=== PATIENT | female | born 1980 | race Caucasian/White ===

== ENCOUNTER 2017-05-21 08:46 | Emergency (ER) | payer OTHER ==
[2017-05-21 10:29] VITALS: BP 108/62
== END 2017-05-21 10:29 | disposition home or self-care (01) ==
LOC: ED 08:46
DX: J11.1 Influenza due to unidentified influenza virus with other respiratory manifestations (principal)
CPT/HCPCS: J1885; J7030

== ENCOUNTER 2018-08-12 04:53 | Emergency (ER) | payer OTHER ==
[~2018-08-12] VITALS: Ht 152.4 cm; Wt 76.7 kg
[2018-08-12 04:54] VITALS: Ht 152.4 cm; Wt 76.7 kg
[2018-08-12 05:59] LABS: PLATELET COUNT 245 x10^3mcL (130-400); RED CELL DISTRIBUTION WIDTH 13.2 % (11.5-14.5)
[2018-08-12 06:07] LABS: CALCIUM 8.7 mg/dL (8.5-10.1); CARBON DIOXIDE 25.6 mmol/L (21-32); CHLORIDE SERUM 104 mmol/L (98-107); CREATININE SERUM 0.7 mg/dL (0.6-1.0); GFR1 > 60 mL/min; GLUCOSE SERUM 115 mg/dL (74-106); POTASSIUM SERUM 3.6 mmol/L (3.5-5.1); SODIUM SERUM 137 mmol/L (136-145)
[2018-08-12 06:15] LABS: ALBUMIN 3.7 g/dL (3.4-5.0); ALKALINE PHOSPHATASE 69 U/L (46-116); ALT/SGPT 52 U/L (14-59); AST/SGOT 31 U/L (15-37); TOTAL PROTEIN, SERUM 7.2 g/dL (6.4-8.2)
[2018-08-12 06:16] LABS: BAND NEUTROPHIL 4 % (0-10); MONOCYTE 7 % (0-7); SEGMENTED NEUTROPHILS 80 % (37-75)
[2018-08-12 06:17] LABS: rbc morphology (normal/abnorm) NORMAL (NORMAL)
[2018-08-12 06:18] LABS: PLATELET MORPHOLOGY FEW LARGE PLATELET
[2018-08-12 08:38] VITALS: BP 106/72
== END 2018-08-12 08:38 | disposition home or self-care (01) ==
LOC: ED 04:53
PROVIDERS: Emergency Medicine
DX: R10.31 Right lower quadrant pain (principal); R11.0 Nausea
CPT/HCPCS: J2270; J2405; J7030

== ENCOUNTER 2020-02-18 19:31 | Emergency (ER) | payer OTHER ==
[~2020-02-18] VITALS: Ht 152.4 cm; Wt 73.7 kg
[2020-02-18 19:53] VITALS: Ht 152.4 cm; Wt 73.7 kg
[2020-02-18 21:08] VITALS: BP 105/71
== END 2020-02-18 21:08 | disposition home or self-care (01) ==
LOC: ED 19:31
DX: N39.0 Urinary tract infection, site not specified (principal)